=== PATIENT | male | born 1960 | race Caucasian/White ===

== ENCOUNTER 2017-05-18 15:49 | Emergency (ER) | END 2017-05-18 19:42 | disposition home or self-care (01) | DX: R10.84 Generalized abdominal pain (principal); E87.5 Hyperkalemia; R11.2 Nausea with vomiting, unspecified; B35.0 Tinea barbae and tinea capitis; I10 Essential (primary) hypertension; F17.210 Nicotine dependence, cigarettes, uncomplicated; R51 Headache | CPT/HCPCS: 36415; 70450; 71010; 74176; 80048; 80053; 80307; 81003; 82962; 83690; 84484; 85025; 93005; 96374; 96375; J0610; J0696; J1815; J2405; J7030; Z7502; Z7610 ==

== ENCOUNTER 2018-08-09 13:29 | Emergency (ER) | END 2018-08-09 15:38 | disposition left against medical advice (07) ==